=== PATIENT | female | born 1960 | race Caucasian/White ===

== ENCOUNTER 2020-05-13 11:44 | Emergency (ER) | payer BC, SELFPAY ==
--- NOTE | ~2020-05-13 | XR_ITS ---
XR ankle RT min 3V 05/13/2020 12:06 Indication: Right ankle pain after recent fall Procedure: 4 views right ankle Comparison: No prior studies for comparison. Findings: There is a transverse nondisplaced distal fibular fracture. Mild soft tissue swelling. No o ther fracture. Ankle mortise intact. No foreign bodies. Impression: 1: Nondisplaced transverse distal fibular fracture. Reviewed, dictated and finalized at location A. Impression: 1: Nondisplaced transverse distal fibular fracture.
[2020-05-13 11:55] VITALS: BP 119/79; PULSE 87; RESP 20; TEMP 36.6; O2SAT 99
--- NOTE | 2020-05-13 12:02 | ED.LOWEXIN ---
HPI - Extremity Injury (Lower) General Chief Complaint: Extremity Injury, Lower Stated Complaint: R/ankle pain Time Seen by Provider: 05/13/20 12:02 Source: patient History of Present Illness HPI Narrative: patient presents with right ankle pain. [place] Swelling and bruising to the ankle. no deformity, no open areas, no numbness or tingling. Related Data Home Medications Medication Instructions Recorded Confirmed olmesartan-hydrochlorothiazide 1 tablet DAILY 05/13/20 05/13/20 pravastatin 80 mg DAILY 05/13/20 05/13/20 Allergies Allergy/AdvReac Type Severity Reaction Status Date / Time Penicillins Allergy Unknown Other Verified 08/25/17 10:25 Review of Systems Review of Systems: Narrative: CONSTITUTIONAL: Denies fever, chills, or sweats. EYES: Denies visual changes, redness, or discharge. ENT: Denies rhinorrhea, congestion, sore throat, or otalgia. CARDIOVASCULAR: Denies chest pain, palpitations, or edema. RESPIRATORY: Denies cough or dyspnea. GASTROINTESTINAL: Denies abdominal pain, nausea, vomiting, or diarrhea. GENITOURINARY: Denies dysuria or hematuria. SKIN: Denies rash or itching. MUSCULOSKELETAL: Denies back pain, joint pain, or myalgia. Patient complains of right ankle pain NEUROLOGIC: Denies headache, numbness, or weakness. PSYCHIATRIC: Denies anxiety or depression. [facility] Family History Family History (Updated 03/24/17 @ 16:57 by DOCTOR UNKNOWN) Father Patient's father is Family history of Parkinson's disease, Onset Age: 78 Other Family history of coronary artery disease Social History Social History Smoking status: Heavy tobacco smoker Alcohol intake: current Gender identity (if verbalized by the patient): Female Comments At time of signature, agree with nursing past medical, surgical, social and family history. There is no relevant family history pertinent to the presenting complaint Exam Narrative: Exam Narrative: GENERAL: Well-appearing, well-nourished, and in no acute distress. HEAD: Normocephalic, atraumatic. EYES: PERRLA and EOMI. ENT: Nares clear, no rhinorrhea or epistaxis. Mucous membranes moist. NECK: Supple. CHEST: Clear to auscultation. No respiratory distress. HEART: Regular rate and rhythm. No murmur heard. Normal peripheral pulses. ABDOMEN: Soft, nontender, nondistended, normal active bowel sounds. EXTREMITIES: Normal range of motion. slight edema. ANKLE EXAM SKIN INTACT. NORMAL DP PULSE, NORMAL CAP REFILL. NORMAL SENSATION. SKIN: Warm, dry, no rash. tenderness to lateral side of ankle NEURO: No focal deficits. Alert and oriented x3. Bob Coma Scale Eye Opening: Spontaneous 4 Bob Coma Scale Motor: Obeys Commands 6 Bob Coma Scale Verbal: Oriented 5 [place] Coma Scale Total 15 Course Vital Signs Vital signs: Vital Signs Temperature 36.6 C 05/13/20 11:55 Pulse Rate 87 05/13/20 11:55 Respiratory Rate 05/13/20 11:55 Blood Pressure 119/79 05/13/20 11:55 Pulse Oximetry 99 05/13/20 11:55 Temperature 36.6 C 05/13/20 11:55 Pulse Rate 87 05/13/20 11:55 Respiratory Rate 05/13/20 11:55 Blood Pressure 119/79 05/13/20 11:55 Pulse Oximetry 99 05/13/20 11:55 splint applied by the tech - post splint exam normal, N/V/I. patient instructed to watch for increased pain, swelling, numbness, cool fingers, change in color of fingers. Elevation, ice discussed. MDM - Extremity Injury (Lower) Differential Diagnosis Differential diagnosis: Likely ankle sprain and strain, acute internal derangement of knee, fracture of femur, fracture of hip, puncture wound of foot, fracture of toe and ankle fracture Lab Data Lab results narrative: Nondisplaced transverse distal fibula fracture Critical Care Time Critical Care Time Critical Care Time: No Discharge Plan Discharge Clinical Impression: Ankle sprain and strain, Ankle fracture Patient Disposition: Home, Self-Care Condit
== END 2020-05-13 12:42 | disposition home or self-care (01) ==
PROVIDERS: Emergency Provider Nurse Practitioner Family; PCP Family Medicine
DX: S82.424A Nondisplaced transverse fracture of shaft of right fibula, initial encounter for closed fracture (principal); W19.XXXA Unspecified fall, initial encounter
CPT/HCPCS: 29515; 73610; 99214; G0463

== ENCOUNTER 2020-06-27 12:22 | Emergency (ER) | payer BC, SELFPAY ==
[2020-06-27 12:32] VITALS: BP 138/85; PULSE 96; RESP 20; TEMP 36.6; O2SAT 100
[2020-06-27 12:36] VITALS: BP 138/85; PULSE 96; RESP 20; TEMP 36.6; O2SAT 100
--- NOTE | 2020-06-27 12:38 | ED.GENADULT ---
HPI - General Adult General Chief complaint: Abdominal Pain Stated complaint: stomach cramps/dizzy Time Seen by Provider: 06/27/20 12:28 Source: patient and RN notes reviewed Mode of arrival: ambulatory Limitations: no limitations History of Present Illness HPI narrative: Patient presents today complaining of dizziness, lightheadedness, lower abdominal cramping with some intermittent nausea. Symptoms began yesterday afternoon after eating some fast food. Lower abdominal cramping is intermittent in nature. Patient had a normal bowel movement today. Associated symptoms include fatigue, decreased appetite, frontal headache. Dizziness and lightheadedness is worse with standing. Denies fever, numbness or tingling in the extremities, palpitations, vision changes. She does report some frontal headache pressure. She currently rates her abdominal cramping 3/10. States she had similar symptoms when she had strep throat a few years ago. She denies any sore throat at this time. She has tried no [id number] treatment prior to arrival. No history of cardiac or pulmonary problems. Smokes 1 pack/day. She does have hypertension and did take her blood pressure medicine this morning. MD complaint: Dizziness, lightheadedness, lower abdominal cramping Related Data Allergies Allergy/AdvReac Type Severity Reaction Status Date / Time Penicillins Allergy Unknown Other Verified 05/16/20 08:54 Review of Systems Review of Systems: Narrative: CONSTITUTIONAL: Denies body aches, fever, chills, or sweats.+ Fatigue EYES: Denies visual changes, redness, or discharge. ENT: Denies rhinorrhea, congestion, sore throat, or otalgia. CARDIOVASCULAR: Denies chest pain, palpitations, or edema. RESPIRATORY: Denies cough or dyspnea. GASTROINTESTINAL: Denies vomiting, or diarrhea.+ Abdominal cramping, nausea, decreased appetite GENITOURINARY: Denies dysuria or hematuria. SKIN: Denies rash, itching, or wounds. MUSCULOSKELETAL: Denies back pain, joint pain, or myalgia. NEUROLOGIC: Denies numbness, tingling, or weakness.+ Dizziness, lightheadedness, frontal head pressure PSYCH: Denies depression or anxiety. COUNT INCLUDES THE [facility] Past Medical History Medical History (Updated 06/27/20 @ 13:07 by Sandra Larson, PATIENT CARE COORDINATOR, ) Fracture of lateral malleolus of right ankle Hyperlipidemia Hypertension Surgical History Surgical History History of hysterectomy (~1999) Family History Family History Father Patient's father is Family history of Parkinson's disease, Onset Age: 78 Other Family history of coronary artery disease Social History Social History Smoking packs per day: 1 Smoking cigarettes per day: 20.0 Smoking status: Heavy tobacco smoker Alcohol intake: current Gender identity (if verbalized by the patient): Female Comments Your blood pressure was elevated above 120/80 today at Urgent Care. This puts you above the threshold for follow up. Please schedule a followup visit with your personal physician as soon as possible, for further evaluation and treatment. Even blood pressure exceeding 120/80 may indicate pre-hypertension. Exam Narrative: Exam Narrative: GENERAL: Well-appearing, well-nourished, and in no acute distress. HEAD: Normocephalic, atraumatic. EYES: EOMI. PERRL. No nystagmus. No redness or drainage. Conjunctivae normal. ENT: Mucous membranes pink and moist. Nares clear. No rhinorrhea. TMs normal bilaterally. Throat erythematous posteriorly without edema or exudate. Uvula midline. NECK: Normal AROM. Supple. No lymphadenopathy. CHEST: No respiratory distress. Clear to auscultation. HEART: Regular rate and rhythm. No murmur appreciated. Normal peripheral pulses. ABDOMEN: Soft, nontender, nondistended, normal active bowel sounds. MUSCULOSKELETAL: No bony ten
--- NOTE | 2020-06-27 13:00 | ECG_ITS ---
Measurements Intervals [place] Rate: 77 P: 15 IL: 156 QRS: 47 QRSD: 70 T: 56 QT: 366 QTc: 415 Interpretive Statements SINUS RHYTHM LOW QRS VOLTAGE IN PRECORDIAL LEADS BASELINE ARTIFACT- I, III, AVR, AVL, AVF BORDERLINE ECG Electronically Signed On 06-27-2020 13:20:26 CDT by Javi Segovia D.O.
== END 2020-06-27 13:14 | disposition home or self-care (01) ==
PROVIDERS: Emergency Provider Nurse Practitioner; PCP Family Medicine
DX: R42 Dizziness and giddiness (principal); R10.30 Lower abdominal pain, unspecified; E78.5 Hyperlipidemia, unspecified; I10 Essential (primary) hypertension; F17.210 Nicotine dependence, cigarettes, uncomplicated
CPT/HCPCS: 87081; 87804; 87880; 93005; 99213; G0463

== ENCOUNTER 2020-08-11 11:20 | Outpatient (CLI) | payer BC, SELFPAY ==
--- NOTE | ~2020-08-11 | MM_ITS ---
EXAMINATION: MM screening [facility] BI w alex HISTORY: Screening mammogram TECHNIQUE: Craniocaudal and mediolateral oblique 3-D tomosynthesis images were obtained and synthetic 2-D images were generated. CAD analysis was submitted and interpreted. COMPARISON: 12/16/2018, 12/04/2017, 09/20/2016 BREAST PARENCHYMAL COMPOSITION: There are scattered areas of fibroglandular density. FINDINGS: There is no evidence of suspicious mass, calcification, or architectural distortion to sugg est malignancy in either breast. There has been no suspicious interval change. IMPRESSION: 1. No mammographic evidence of malignancy. 2. Recommend routine screening mammography in one year. BI-RADS Category 1: Negative Reviewed, dictated and finalized at location A. K SALES REPRESENTATIVE
== END 2020-08-11 11:21 | disposition home or self-care (01) ==
LOC: ANHIMG 11:21
PROVIDERS: PCP Family Medicine; Visit Provider Obstetrics & Gynecology
DX: Z12.31 Encounter for screening mammogram for malignant neoplasm of breast (principal)
CPT/HCPCS: 77063; 77067

== ENCOUNTER 2021-09-04 07:47 | Outpatient (CLI) | payer BC, SELFPAY ==
--- NOTE | ~2021-09-04 | MM_ITS ---
EXAMINATION: MM screening [facility] BI w alex HISTORY: Screening mammogram TECHNIQUE: Craniocaudal and mediolateral oblique 3-D tomosynthesis images were obtained and synthetic 2-D images were generated. CAD analysis was submitted and interpreted. COMPARISON: 08/11/2020, 12/16/2018, 12/04/2017 bilateral screening mammogram examinations BREAST PARENCHYMAL COMPOSITION: There are scattered areas of fibroglandular density. FINDINGS: Bilateral benign calcifications are again present. There is no evidence of suspicious mass, calcification, or architectural distortion to suggest malignancy in either breast. There has been no suspicious interval change. IMPRESSION: 1. No mammographic evidence of malignancy. 2. Recommend routine screening mammography in one year. BI-RADS Category 2: Benign finding(s). Reviewed, dictated and finalized at location A. TRE DIRECTOR
== END 2021-09-04 07:48 | disposition home or self-care (01) ==
LOC: ANHIMG 07:50
PROVIDERS: PCP Family Medicine; Visit Provider Obstetrics & Gynecology
DX: Z12.31 Encounter for screening mammogram for malignant neoplasm of breast (principal)
CPT/HCPCS: 77063; 77067

== ENCOUNTER 2021-10-14 00:23 | Day surgery (SDC) | payer BC, SELFPAY ==
[2021-09-30 13:58] VITALS: BMI 31.1
[2021-10-14 06:19] VITALS: BP 118/64; PULSE 96; RESP 18; TEMP 36.4; O2SAT 99; BMI 30.6
[2021-10-14] MEDS: LACTATED RINGERS 1,000 ML 150 ML IV CONT (06:37)
--- NOTE | 2021-10-14 06:54 | WPDANESEPPF ---
Anes - Initial Pre Proc Eval Procedure: Operation Date: 10/14/21 07:30 Proposed Procedures p Screening Colonoscopy - Chris Vasquez MD Date/Time: 10/14/21 06:54 Surgeon: Chris Vasquez MD Pre Op Diagnosis: hx of colon polyps, neoplasm screening Patient Data Age: 60 Gender: F Height: 1.57 m Weight: 76 kg Last Vital Signs Temp 36.4 C L 10/14/21 06:19 Pulse 96 10/14/21 06:19 Resp 18 10/14/21 06:19 BP 118/64 10/14/21 06:19 Pulse Ox 99 10/14/21 06:19 Allergies Allergy/AdvReac Type Severity Reaction Status Date / Time Penicillins Allergy Intermediate Hives Verified 10/14/21 06:17 Home Medications Medication Instructions Recorded Confirmed Type olmesartan 20 1 tablet PO DAILY tablet 06/20/21 09/30/21 History mg-hydrochlorothiazide 12.5 mg tablet pravastatin 80 mg tablet 80 mg PO QHS tablet 07/23/21 09/30/21 History Patient hx anesthesia problems: none Family hx anesthesia problems: none Results Review: All pre-operative results and documents have been reviewed as part of the pre-operative evaluation. [facility] Past Medical History Medical History (Updated 10/14/21 @ 06:54 by Gorge Bucio MD) Dyslipidemia Essential (primary) hypertension Fracture of lateral malleolus of right ankle Hyperlipidemia Obesity Overactive bladder Vitamin D deficiency Surgical History Surgical History History of hysterectomy (~1999) Family History Family History Father Patient's father is Family history of Parkinson's disease, Onset Age: 78 Other Family history of coronary artery disease Social History Social History Smoking packs per day: 1 Smoking cigarettes per day: 20.0 Years smoked: 42 Smoking pack-years: 42.00 Smoking status: Current every day smoker Tobacco type: cigarettes Alcohol intake: current Alcohol use details: 1-2 per month Substance use: never Substance use type: does not use Living arrangements: with family Gender identity (if verbalized by the patient): Female Spiritual care concerns: No Anes - Eval Final PreProcedure Day of Procedure 10/14/21 06:54 Patient weight: obese Heart: regular rate and rhythm Lungs: clear to auscultation Airway: Mallampati scale class II Neurological: alert and oriented Last oral intake: >/= 8 hours ASA classification: III Emergent: no Anesthetic plan: proceed Anesthesia type and monitoring: general GIVS and standard monitoring Results Review: All pre-operative results and documents have been reviewed as part of the pre-operative evaluation. Informed Consent: The patient's anesthetic plan and its attendant risks and benefits were discussed with the patient/family/POA. Questions were solicited and answers provided to the satisfaction of the patient/family/POA.
--- NOTE | 2021-10-14 07:22 | P.CONGI_ITS ---
Assessment and Plan Assessment and plan (1) History of colon polyps: Code(s): Z86.010 - Personal history of colonic polyps Status: Acute Assessment and Plan: Patient has a personal history of colon polyps. For this reason surveillance colonoscopy has been suggested 5 year intervals. Further recommendations will be given after endoscopy. GI Consult Note Consult date/time: 10/14/21 07:22 HPI: Casandra Celeste is a 60 year old female Presents for screening colonoscopy. Patient has a prior history of colon polyps on several previous colonoscopies. Most recent colonoscopy 2015. Patient reports that her current weight appetite and bowel movements are normal. She denies abdominal pain. She has had no bleeding. Family history is noncontributory. Review of Systems Review of Systems: All systems reviewed & are unremarkable except as noted in HPI and below PMFSH Past Medical History Medical History (Updated 10/14/21 @ 07:23 by Chris Vasquez MD) Dyslipidemia Essential (primary) hypertension Fracture of lateral malleolus of right ankle Hyperlipidemia Obesity Overactive bladder Vitamin D deficiency Surgical History Surgical History History of hysterectomy (~1999) Family History Family History Father Patient's father is Family history of Parkinson's disease, Onset Age: 78 Other Family history of coronary artery disease Social History Social History Smoking packs per day: 1 Smoking cigarettes per day: 20.0 Years smoked: 42 Smoking pack-years: 42.00 Smoking status: Current every day smoker Tobacco type: cigarettes Alcohol intake: current Alcohol use details: 1-2 per month Substance use: never Substance use type: does not use Living arrangements: with family Gender identity (if verbalized by the patient): Female Spiritual care concerns: No Meds Home Medications and Allergies Home Medications Medication Instructions Recorded Confirmed Type olmesartan 20 1 tablet PO DAILY tablet 06/20/21 09/30/21 History mg-hydrochlorothiazide 12.5 mg tablet pravastatin 80 mg tablet 80 mg PO QHS tablet 07/23/21 09/30/21 History Allergies Allergy/AdvReac Type Severity Reaction Status Date / Time Penicillins Allergy Intermediate Hives Verified 10/14/21 06:17 Vital Signs Vital Signs - 24 hr 10/14/21 06:19 Temperature 97.5 F L Pulse Rate 96 Respiratory Rate 18 Blood Pressure 118/64 Pulse Oximetry 99 Exam Narrative: Physical exam reveals patient to be alert. Vital signs stable. HEENT exam is unremarkable. Patient is anicteric. Lungs are clear to auscultation and percussion. Heart is without murmur or extra sounds. Abd ominal exam bowel sounds are present soft nontender with no organomegaly. Digital external rectal exam is normal.
[2021-10-14 07:48] VITALS: BP 83/51; PULSE 73; RESP 17; O2SAT 99
[2021-10-14 07:58] VITALS: BP 92/55; PULSE 67; RESP 16; O2SAT 100
[2021-10-14 08:08] VITALS: BP 100/60; PULSE 72; RESP 24; O2SAT 100
== END 2021-10-14 08:11 | disposition home or self-care (01) ==
PROVIDERS: PCP Family Medicine; Visit Provider Internal Medicine Gastroenterology
PROC: 0DJD8ZZ Inspection of Lower Intestinal Tract, Via Natural or Artificial Opening Endoscopic (ICD-10-PCS; CPT 45378; principal; 2021-10-14 07:30)
DX: Z12.11 Encounter for screening for malignant neoplasm of colon (principal); K62.1 Rectal polyp; K64.8 Other hemorrhoids; E55.9 Vitamin D deficiency, unspecified; I10 Essential (primary) hypertension; E78.5 Hyperlipidemia, unspecified; F17.210 Nicotine dependence, cigarettes, uncomplicated; E66.9 Obesity, unspecified; Z68.30 Body mass index [BMI] 30.0-30.9, adult
CPT/HCPCS: 45385; 88305; J2370; J2704; J7120

== ENCOUNTER 2022-11-01 07:13 | Outpatient (CLI) | payer BC, SELFPAY ==
--- NOTE | ~2022-11-01 | MM_ITS ---
EXAMINATION: MM screening [facility] BI w alex HISTORY: Screening mammogram TECHNIQUE: Craniocaudal and mediolateral oblique 3-D tomosynthesis images were obtained and synthetic 2-D images were generated. CAD analysis was submitted and interpreted. COMPARISON: 09/04/2021, 08/11/2020, 12/16/2018 BREAST PARENCHYMAL COMPOSITION: There are scattered areas of fibroglandular density. FINDINGS: No suspicious mass, calcification, or architectural distortion are identified in either destiny ast to suggest malignancy. There has been no suspicious interval change. IMPRESSION: 1. No mammographic evidence of malignancy. 2. Recommend routine screening mammography in one year. BI-RADS Category 1: Negative Reviewed, dictated and finalized at location A. IAL WARFARE COMBATANT CREWMAN
== END 2022-11-01 07:14 | disposition home or self-care (01) ==
LOC: ANHIMG 07:15
PROVIDERS: PCP Family Medicine; Visit Provider Obstetrics & Gynecology
DX: Z12.31 Encounter for screening mammogram for malignant neoplasm of breast (principal)
CPT/HCPCS: 77063; 77067

== ENCOUNTER 2024-01-14 07:39 | Outpatient (CLI) | payer BC, SELFPAY ==
--- NOTE | ~2024-01-14 | MM_ITS ---
EXAMINATION: MM screening [facility] BI w alex HISTORY: Screening mammogram TECHNIQUE: Craniocaudal and mediolateral oblique 3-D tomosynthesis images were obtained and synthetic 2-D images were generated. CAD analysis was submitted and interpreted. COMPARISON: 11/01/2022, 09/04/2021 bilateral screening mammogram examinations BREAST PARENCHYMAL COMPOSITION: There are scattered areas of fibroglandular density. FINDINGS: Scattered bilateral benign calcifications. There is no evidence of suspicious mass, calcifi cation, or architectural distortion to suggest malignancy in either breast. There has been no suspici ous interval change. IMPRESSION: 1. No mammographic evidence of malignancy. 2. Recommend routine screening mammography in one year. BI-RADS Category 2: Benign finding(s). Reviewed, dictated and finalized at location B.
--- NOTE | ~2024-01-14 | DEXA_ITS ---
Bone Density Report Name: OREN MEJIA Age: 63 Sex: Female Ethnicity: White Date of : 1960 Indication: postmenopausal; screening for osteoporosis; height loss; hysterectomy; Referring Provider: KARL HOBBS Study: Bone densitometry was performed. Exam Date: January 14, 2024 Accession number: [id number] Bone Density: Region BMD T-score Z-score Classification AP Spine(L1-L4) 1.295 2.3 4.0 Normal Femoral Neck (Left) 0.981 1.2 2.7 Normal Total Hip (Left) 1.099 1.3 2.5 Normal Femoral Neck (Right) 0.967 1.1 2.6 Normal Total Hip (Right) 1.060 1.0 2.2 Normal Total Hip Mean 1.079 1.2 2.4 Normal World Health Organization criteria for BMD impression classify patients as: Normal (T-score at or above -1.0), Osteopenia (T-score between -1.0 and -2.5), or Osteoporosis (T-score at or below -2.5). 10-year Fracture Risk: FRAX not reported because: All T-scores for Spine Total, Hip Total, Femoral Neck at or above -1.0 Clinical Information Provided by Patient: Smokes Has used the following medications: Vitamin D Has the following medical conditions: Hysterectomy Patient maximum height was 64 Menopause Age: 38 Drinks caffeinated beverages Onset of menses at age 8 Number of children 2 Impression: The patient has normal bone mass. The patient has risk factors, including: smoking. Discussion: LOW RISK OF FRACTURE; BONE DENSITY IS WELL ABOVE THE MINIMUM DESIRABLE LEVEL AND ABOVE AVERAGE FOR AGE AND SEX AT ALL SKELETAL SITES TESTED. This person's bone density is above expected limits for age and sex. This is rarely clinically significant, but should be pursued if there are significant musculoskeletal complaints. The patient should follow a healthful lifestyle (good nutrition with adequate calcium and vitamin D, and appropriate weight-bearing exercise). Follow-Up: Consider repeating this study in 5 years or sooner if there is some new clinical indication. Reported by: CARMELITA on 01/14/2024 8:03:00 AM. Reviewed, dictated and finalized at location A. [facility]
== END 2024-01-14 07:40 | disposition home or self-care (01) ==
LOC: ANHIMG 07:42
PROVIDERS: PCP Family Medicine; Visit Provider Obstetrics & Gynecology
DX: Z12.31 Encounter for screening mammogram for malignant neoplasm of breast (principal); R29.890 Loss of height; Z78.0 Asymptomatic menopausal state; Z90.710 Acquired absence of both cervix and uterus; Z13.820 Encounter for screening for osteoporosis
CPT/HCPCS: 77063; 77067; 77080

== ENCOUNTER 2024-01-21 06:03 | Emergency (ER) | payer BC, SELFPAY ==
--- NOTE | ~2024-01-21 | XR_ITS ---
XR sacrum coccyx min 2V DATE: 01/21/2024 07:54 INDICATION: Low back pain, sciatica TECHNIQUE: AP, angled AP and lateral views COMPARISON: None FINDINGS: No sacral or coccygeal fracture or bone destruction is evident. The sacral iliac joints are intact, without evidence of erosive change or ankylosis. Normal alignment at the pubic symphysis. IMPRESSION: No significant abnormality Reviewed, dictated and finalized at location B. IMPRESSION: No significant abnormality
--- NOTE | ~2024-01-21 | XR_ITS ---
XR lumbar spine 2-3V DATE: 01/21/2024 07:54 INDICATION: Low back pain, sciatica TECHNIQUE: AP, lateral, cone-down lateral lumbosacral views COMPARISON: None FINDINGS: There is mild loss of interspace height at L3-4. There is moderately prominent loss of interspace height mild spurring at L4-5. The remaining lumbar l evel secondary spaces appear well preserved. No fracture or bone destruction or spondylolisthesis. The included lower thoracic and lumbar pedicles are intact. The sacroiliac joints appear normal. IMPRESSION: Degenerative disease, mild to moderate at L3-4, moderate to moderately severe at L4-5 Reviewed, dictated and finalized at location B. IMPRESSION: Degenerative disease, mild to moderate at L3-4, moderate to moderat sam severe at L4-5
[2024-01-21 06:06] VITALS: BP 145/81; PULSE 104; RESP 18; TEMP 36.4; O2SAT 100
[2024-01-21 06:11] VITALS: BP 145/81; PULSE 86; RESP 18; TEMP 36.9; O2SAT 100
--- NOTE | 2024-01-21 07:14 | ED.LOWEXIN ---
HPI - Extremity Injury (Lower) General Chief Complaint: Extremity Injury, Lower Stated Complaint: L leg pain Time Seen by Provider: 01/21/24 06:56 Source: patient and family ( Gorge) Mode of arrival: ambulatory Limitations: no limitations History of Present Illness HPI Narrative: patient presents with left leg pain and left buttock pain as well as low back pain. This has been present for approximately 2 weeks the occurring intermittently. She states she feels like it pole in her back and buttocks. Pain is along the lateral aspect of her left leg. No paresthesias. Pain began shortly after she sat with her legs crossed for approximately 1 hour 01/09/2024 while planting [place]han for mother. She has had some days that were without pain but pain returned this morning and seemed worse. She does note that pain is better with standing. She denies any bowel or bladder dysfunction. No IV drug use. She has been trialing Aleve 1 time and sometimes twice daily as well as using Biofreeze and applying an ice pack. Related Data Home Medications Medication Instructions Recorded Confirmed cholecalciferol (vitamin D3) 50 50 mcg PO DAILY 02/17/22 07/30/23 mcg (2,000 unit) capsule Allergies Allergy/AdvReac Type Severity Reaction Status Date / Time Penicillins Allergy Intermediate Hives Verified 01/21/24 06:10 [facility] Past Medical History Medical History Dyslipidemia Essential (primary) hypertension Fracture of lateral malleolus of right ankle History of colon polyps History of COVID-19 (~01/2022) Hyperlipidemia Obesity Overactive bladder Prediabetes Vitamin D deficiency Surgical History Surgical History History of hysterectomy (~1999) Family History Family History Father Patient's father is Family history of Parkinson's disease, Onset Age: 78 Other Family history of coronary artery disease Social History Social History Smoking packs per day: 1 Smoking cigarettes per day: 20.0 Years smoked: 44 Smoking pack-years: 44.00 Smoking status: Current every day smoker Tobacco type: cigarettes Alcohol intake: current Alcohol use details: 1-2 per month Substance use: never Substance use type: does not use Lack of Transportation: No Lack of Food: Never True Current Housing: I Have Housing Concerned About Future Housing: No Difficulty Paying Gas/Electric Bills: No Difficulty Paying for Meds: No Currently Unemployed: No Education: High School Diploma/GED Difficulty w/ Childcare or Family Care: No Living arrangements: with family Additional living arrangements comments: Occupation/Education: occupation Gender identity (if verbalized by the patient): Female Sexual Orientation (if Verbalized by the Patient): Straight or Heterosexual Spiritual care concerns: No Agree to blood products: Yes Exam Narrative: GENERAL: Well-appearing, well-nourished, and in no acute distress. HEAD: Normocephalic, atraumatic. EYES: Non injected, non icteric ENT: Nares clear, no rhinorrhea or epistaxis. NECK: Supple. CHEST: Speaking in full sentences. No respiratory distress. HEART: Regular rate and rhythm. . ABDOMEN: Soft, nondistended. EXTREMITIES: Normal range of motion. No edema. Warm and well perfused. SKIN: Warm, dry, no rash. No mottling. BACK: No TTP of midline lumbar spine NEURO: No focal deficits. Alert and oriented x3. Sensation intact to gross touch in proximal and distal bilateral lower extremities, symmetric. 5/5 strength with knee flexion and extension bilaterally, 5/5 strength with hip flexion bilaterally, 5 out 5 strength with hip abduction and abduction bilaterally. Straight leg negative. No muscle spasm appreciated a
[2024-01-21] MEDS: ACETAMINOPHEN 325 MG TABLET 650 MG PO (07:45)
[2024-01-21] MEDS: HYDROcodone/acetaminophen (*CRX) 5-325 MG TABLET 1 TAB PO (07:45)
[2024-01-21] MEDS: LIDOCAINE 5% PATCH 1 PATCH TRANSDERM (07:56)
[2024-01-21] MEDS: KETOROLAC 15 MG/ML VIAL (*BKC) IV PUSH (07:57)
== END 2024-01-21 08:36 | disposition home or self-care (01) ==
PROVIDERS: Emergency Provider Student in an Organized Health Care Education/Training Program; PCP Family Medicine
DX: M54.42 Lumbago with sciatica, left side (principal); M51.36 Other intervertebral disc degeneration, lumbar region; E78.5 Hyperlipidemia, unspecified; I10 Essential (primary) hypertension; N32.81 Overactive bladder; E66.9 Obesity, unspecified; Z68.29 Body mass index [BMI] 29.0-29.9, adult; E55.9 Vitamin D deficiency, unspecified; R73.03 Prediabetes; F17.210 Nicotine dependence, cigarettes, uncomplicated; Z86.010 Personal history of colon polyps; Z86.16 Personal history of COVID-19; Z90.710 Acquired absence of both cervix and uterus
CPT/HCPCS: 72100; 72220; 96374; 99284; A9270; J1885

== ENCOUNTER 2024-09-28 13:02 | Outpatient (CLI) | payer BC, SELFPAY ==
--- OUTSIDE RECORDS SUMMARY | 2024-09-28 14:07 | XMS_ITS | Clinical Summary ---
Author Organization [facility] Address [address] [place] [address]. [place], [place] [id number] [place] [id number] Care Team Providers Care Crts Name Role Phone Unavailable Primary Care Provider Unavailabl e Social History Tobacco Use Types Packs/Day Years Used Date Smoking Tobacco: Never Assessed Comments Unknown Sex and Gender Information Value Date Recorded Sex Assigned at Not on file Legal Sex Female 7:07 PM CDT Gender Identity Not on file Sexual Orientation Not on file Plan of Treatment Health Maintenance Due Date Last Done Comments Colorectal Cancer Screening Colonoscopy (10 Years) 1958 Hepatitis C 1976 DTaP, Tdap and Td Vaccines ( 1 - Tdap) 1977 Mammogram Screening 1998 Zoster Vaccines (1 of 2) 2008 Dexa Scan (General) 2023 Pneumococcal Vaccine: 65+ Ye ars (1 of 1 - PCV) 2023 COVID-19 Vaccine (2023-2 5 season) 2024 Influenza Adult (#1) 2024 RSV Immunization or 60+ Years (1 - 1-dose 75+ series) 2033 Meningococcal B Vaccine Aged Out No l onger eligible based on patient's age to complete this topic Meningococcal Vaccine Aged Out No cassy arnold eligible based on patient's age to complete this topic Pneumococcal Vaccine: Pediat rics (0 to 5 Years) and At-Risk Patients (6 to 64 Years) Aged Out No longer eligible b ased on patient's age to complete this topic RSV Immunizations Under 20 Months Aged Out No longer eligible based on patient's age to complete this topic
--- NOTE | 2024-09-28 14:10 | NEURO_ITS ---
Impression: # Complains of hands hurting. Non-diabetic. ? # Normal Nerve Conduction Study. ? # No Carpal Tunnel Syndrome or ulnar neuropathy. ? # Needle/EMG exam with decreased motor unit potentials in left upper extremity; ? Raising the possibility of higher involvement. ? # MRI of C-spine suggested. Nerve Conduction Studies Anti Sensory Summary Table ?Stim Site NR Peak (ms) P-T Amp (?V) Site1 Site2 Delta-P (ms) Dist (cm) Joe (m/s) Left Median Anti Sensory (2-3nd Digit) Wrist ? 2.5 83.0 Wrist 2-3nd Digit 2.5 14.0 56 Wrist ? 2.7 77.2 Wrist 2-3nd Digit 2.5 14.0 56 Right Median Anti Sensory (2-3nd Digit) Wrist ? 2.9 36.0 Wrist 2-3nd Digit 2.9 14.0 48 Wrist ? 2.7 33.0 Wrist 2-3nd Digit 2.9 14.0 48 Left Radial Anti Sensory (Base 1st Digit) Wrist ? 1.8 36.9 Wrist Base 1st Digit 1.8 0.0 Right Radial Anti Sensory (Base 1st Digit) Wrist ? 1.9 26.7 Wrist Base 1st Digit 1.9 0.0 Left Ulnar Anti Sensory (5th Digit) Wrist ? 2.1 70.7 Wrist 5th Digit 2.1 14.0 67 Right Ulnar Anti Sensory (5th Digit) Wrist ? 2.1 37.1 Wrist 5th Digit 2.1 14.0 67 Motor Summary Table ?Stim Site NR Onset (ms) O-P Amp (mV) Site1 Site2 Delta-0 (ms) Dist (cm) Joe (m/s) Left Median Motor (Abd Poll Brev) Wrist ? 3.1 3.8 Elbow Wrist 4.9 28.0 57 Elbow ? 8.0 1.7 Right Median Motor (Abd Poll Brev) Wrist ? 3.1 8.8 Elbow Wrist 4.6 27.0 59 Elbow ? 7.7 5.4 Left Ulnar Motor (Abd Dig Minimi) Wrist ? 2.8 5.2 A Elbow Wrist 5.0 29.0 58 A Elbow ? 7.8 3.0 Right Ulnar Motor (Abd Dig Minimi) Wrist ? 2.4 5.3 A Elbow Wrist 4.8 28.0 58 A Elbow ? 7.2 4.6 F Wave Studies ?NR F-Lat (ms) L-R F-Lat (ms) Left Median (Mrkrs) (Abd Poll Brev) ? 28.13 0.74 Right Median (Mrkrs) (Abd Poll Brev) ? 28.87 0.74 Left Ulnar (Mrkrs) (Abd Dig Min) ? 26.56 0.58 Right Ulnar (Mrkrs) (Abd Dig Min) ? 27.14 0.58 EMG ?Side Muscle Nerve Root Ins Act Fibs Amp Dur Recrt Comment Right 1stDorInt Ulnar C8-T1 Nml Nml Nml Nml Nml Right Ext Indicis Radial (Post Int) C7-8 Nml Nml Nml Nml Nml Right Ext Digitorum Radial (Post Int) C7-8 Nml Nml Nml Nml Nml Right BrachioRad Radial C5-6 Nml Nml Nml Nml Nml Right PronatorTeres Median C6-7 Nml Nml Nml Nml Nml Right Abd Poll Brev Median C8-T1 Nml Nml Nml Nml Nml Right ABD Dig Min Ulnar C8-T1 Nml Nml Nml Nml Nml Left 1stDorInt Ulnar C8-T1 Nml Nml Nml Nml Nml Left Ext Indicis Radial (Post Int) C7-8 Nml Nml Nml Nml Nml Left Ext Digitorum Radial (Post Int) C7-8 Nml Nml Nml Nml Nml Left BrachioRad Radial C5-6 Nml Nml Nml Nml Nml Left PronatorTeres Median C6-7 Nml Nml Nml Nml Nml Left Abd Poll Brev Median C8-T1 Nml Nml Nml Nml Nml Left ABD Dig Min Ulnar C8-T1 Nml Nml Nml Nml Nml Left Biceps Musculocut C5-6 Nml Nml Incr >12ms +1 Left Triceps Radial C6-7-8 Nml Nml Incr >12ms +1 Left Deltoid Axillary C5-6 Nml Nml Incr >12ms +1 MTDD
== END 2024-09-28 13:03 | disposition home or self-care (01) ==
LOC: ANHNEURO 13:04
PROVIDERS: PCP Family Medicine; Visit Provider Family Medicine
DX: R20.0 Anesthesia of skin (principal); R20.2 Paresthesia of skin
CPT/HCPCS: 95886; 95911

== ENCOUNTER 2025-02-17 07:10 | Outpatient (CLI) | payer BC, SELFPAY ==
--- NOTE | ~2025-02-17 | MM_ITS ---
EXAMINATION: MM screening mechelle BI w alex HISTORY: Screening TECHNIQUE: Craniocaudal and mediolateral oblique 3-D tomosynthesis images were obtained and synthetic 2-D images were generated. CAD analysis was submitted and interpreted. COMPARISON: Comparison to multiple prior studies sequentially, with oldest reviewed study dated 01/2018. BREAST PARENCHYMAL COMPOSITION: Not dense: There are scattered areas of fibroglandular density. FINDINGS: There is no evidence of suspicious mass, calcification, or architectural distortion to sugg est malignancy in either breast. There has been no suspicious interval change. IMPRESSION: 1. No mammographic evidence of malignancy. 2. Recommend routine screening mammography in one year. BI-RADS Category 1: Negative Reviewed, dictated and finalized at location A.
== END 2025-02-17 07:11 | disposition home or self-care (01) ==
LOC: ANHIMG 07:14
PROVIDERS: PCP Family Medicine; Visit Provider Obstetrics & Gynecology
DX: Z12.31 Encounter for screening mammogram for malignant neoplasm of breast (principal)
CPT/HCPCS: 77063; 77067